=== PATIENT | female | born 1935 | race Caucasian/White ===

== ENCOUNTER 2017-12-16 11:23 | Outpatient (CLI) | payer OTHER | END 2017-12-16 12:40 | disposition home or self-care (01) | LOC: RAD 501 11:23 | DX: M25.552 Pain in left hip (principal) ==

== ENCOUNTER 2017-12-24 11:56 | Outpatient (CLI) | payer OTHER | END 2017-12-24 12:05 | disposition home or self-care (01) | LOC: SONOGRAMA 11:56 | DX: M25.572 Pain in left ankle and joints of left foot (principal) ==

== ENCOUNTER 2018-04-09 11:55 | Outpatient (CLI) | payer OTHER | END 2018-04-09 13:00 | disposition home or self-care (01) | LOC: NUCLEAR 11:55 | DX: I75.021 Atheroembolism of right lower extremity (principal); I75.022 Atheroembolism of left lower extremity; I73.9 Peripheral vascular disease, unspecified ==

== ENCOUNTER 2018-04-10 10:00 | Outpatient (CLI) | payer OTHER | END 2018-04-10 11:00 | disposition home or self-care (01) | LOC: NUCLEAR 10:00 | DX: I82.401 Acute embolism and thrombosis of unspecified deep veins of right lower extremity (principal); I82.402 Acute embolism and thrombosis of unspecified deep veins of left lower extremity ==